=== PATIENT | male | born 1960 | race Caucasian/White ===

== ENCOUNTER 2025-01-12 10:35 | Observation (INO) ==
--- NOTE | 2025-01-12 11:21 | Emergency Department Note ---
Impression & Plan Vertigo, Vomiting, Nausea ED Provider Note NAME: YOVANY YANES AGE: 64 SEX: M : 1960 ARRIVES VIA: Ambulance INFORMANT: Patient ED PROVIDER(S): Tor Pfeiffer DO CHIEF COMPLAINT: dizzy HPI: Patient is a 64-year-old male with a past medical history of vertigo who presents to the ER for dizziness. Patient notes that this started this morning and was coming and going. It is now constant. Anytime he opens his eyes and moves it is worse. If he stays still it is much better. Denies any focal weakness or numbness in the arms or legs. No chest pain or shortness of breath. No dysuria, urgency, or frequency. No other exacerbating or remitting factors. ADDITIONAL HISTORY OBTAINED: Per HPI Chronic Medical/Social Conditions Affecting Care: Per HPI PAST MEDICAL HISTORY:See Below PAST SURGICAL HISTORY:See Below FAMILY HISTORY:See Below SOCIAL HISTORY:See Below HOME MEDICATIONS:See Below ALLERGIES:See Below VITALS:See Below PHYSICAL EXAMINATION: GENERAL: Sitting up in bed, alert, well appearing, well nourished, no distress, non-toxic EYE EXAM: normal conjunctiva. PERRL and EOM's grossly intact. OROPHARYNX: mucous membranes are moist NECK: supple, no nuchal rigidity, no adenopathy, non-tender LUNGS: Clear to auscultation. Normal chest wall mechanics HEART: no murmurs, S1 normal and S2 normal ABDOMEN: abdomen soft, non-tender, normo-active bowel sounds, no masses, no rebound or guarding. BACK: Back is symmetrical on inspection and there is no deformity, no midline tenderness, no CVA tenderness. SKIN: no rashes and no bruising UPPER EXTREMITIES: upper extremities are grossly normal. LOWER EXTREMITIES: No pitting edema. NEURO EXAM: Normal sensorium, cranial nerves II-XII intact, normal speech, no weakness of arms, no weakness of legs. No drift. Finger to nose intact. Gross sensation intact. MEDICAL DECISION MAKING: Patient is a 64-year-old male who presents ER for the above-stated complaint. IV was established and blood work was obtained. Labs show no significant leukocytosis or anemia. BMP with LFTs and bilirubin were fairly unremarkable. Troponin was negative. Lipase was normal. He has no chest pain. He is neurologically intact. CT angios of the head and neck showed no acute pathology. Chest x-ray was unremarkable. He was given several doses of Zofran, Reglan, Ativan and meclizine. He still felt fairly dizzy. Based on his symptoms I do favor that this likely consistent with a peripheral vertigo as it is worse with movement of the head but as he is still very symptomatic and having trouble walking did discuss case with the hospitalist for further evaluation management and treatment. Consults/Care Managements Discussions: Per [facility] Triage Nursing notes reviewed. Limited review of prior medical records performed Vital Signs: reviewed and remarkable for HTN Differential diagnosis: Differential diagnosis includes etiologies such as benign positional vertigo, dehydration, hypovolemia, anemia, tumor, infection, hypoglycemia, electrolyte abnormalities, cardiac sources, intracerebral event, toxicologic, neurological, as well as others were entertained. ER treatment provided: See below Diagnostics interpreted by me include EKG and cardiac monitoring as listed below: -Cardiac Monitoring: An order was placed for continuous cardiac monitoring. The monitor shows a rate of 50 with sinus rhythm. -ECG: Sinus bradycardia rate of 47 Normal axis No PVCs T wave inversion in V1 through V3 QTc 438 -Laboratory studies:Interpreted by me as stated above in MDM and shown below. Imaging studies: Xrays: As interpreted by me: Portable AP upright 1 view of the chest shows no focal infiltrate CTs show: CT angios of the head and neck were negative per radiology Procedures:none Critical Care: None Past Med/Surg History Problem List (Updated 01/12/25 @ 13:58 by Tor Pfeiffer DO) Nausea (Acute) Vomiting (Acute) Vertigo (Acute) Social History Smoking Status: Never smoker Feels Safe at Home: Yes Allergies Allergies Allergy/AdvReac Type Severity Reaction Status Date / Time No Known Allergies Allergy Unverified 01/12/25 11:31 Home Meds Home Medications Medication Instructions Recorded Confirmed allopurinol 100 mg tablet 100 mg PO DAILY 01/12/25 01/12/25 escitalopram oxalate 20 mg tablet 20 mg PO DAILY 01/12/25 01/12/25 gabapentin 300 mg capsule 300 mg PO TID 01/12/25 01/12/25 losartan 50 mg tablet 50 mg PO DAILY 01/12/25 01/12/25 omeprazole 40 mg capsule,delayed 40 mg PO DAILY 01/12/25 01/12/25 release pravastatin 40 mg tablet 40 mg PO DAILY 01/12/25 01/12/25 Results & Data (ED) Vital Signs Vital Signs - 24 hr 01/12/25 10:40 01/12/25 11:27 01/12/25 11:47 Temperature 36.8 C Temperature Source Oral Pulse Rate 48 L 54 L Pulse Rhythm Regular Pulse Strength Normal Respiratory Rate 18 Respiratory Effort / Characteristics Non-Labored Spontaneous Respiratory Depth Normal Respiratory Pattern Regular Blood Pressure 153/93 H Blood Pressure Mean 113 Pulse Oximetry 95 94 Oxygen Delivery Method Room Air Room Air Sepsis Recent Fever Within 48 Hours No Sepsis New/Unexplained Change in Mental Status No Sepsis Action Taken by Nursing No Action Required Laboratory Data 01/12/25 11:08 01/12/25 11:08 Lab Results 01/12/25 Range/Units 11:08 WBC 5.31 (4.8-10.8) K/ul RBC 4.99 (4.70-6.10) M/uL Hgb 15.0 (14.0-18.0) g/dl Hct 43.1 (42.0-52.0) % MCV 86.4 (80.0-100.0) fL MCH 30.1 (25.0-34.0) pg MCHC 34.8 (32.0-36.0) g/dL RDW Std Deviation 42.2 (36.4-46.3) fL RDW Coeff of Loki 13.4 (11.5-14.5) % Plt Count 166 (130-400) K/uL MPV 9.7 (9.4-12.4) fL Immature Gran % (Auto) 0.4 % Neut % (Auto) 78.5 % Lymph % (Auto) 13.4 % [place] % (Auto) 6.2 % Eos % (Auto) 0.9 % Baso % (Auto) 0.6 % Neut # (Auto) 4.17 (1.40-6.50) K/uL Lymph # (Auto) 0.71 L (1.20-3.40) K/uL [place] # (Auto) 0.33 (0.11-0.59) K/uL Eos # (Auto) 0.05 (0.00-0.50) K/uL Baso # (Auto) 0.03 (0.00-0.20) K/uL Immature Gran # (Auto) 0.02 (0.01-0.20) K/uL Sodium 138 (136-145) mmol/L Potassium 4.0 (3.5-5.1) mmol/L Chloride 105 (98-107) mmol/L Carbon Dioxide 22 (21-32) mmol/L Anion Gap 11 (3-11) BUN 12 (6-23) mg/dl Creatinine 0.95 (0.6-1.4) mg/dl Est Cr Clr Drug Dosing 84.8 ml/min eGFR 89.38 BUN/Creatinine Ratio 12.6 (10-20) Glucose 216 H (70-99(Fasting)) mg/dl Calcium 8.9 (8.6-10.3) mg/dl Total Bilirubin 1.2 H (0.2-1.0) mg/dl AST 21 (13-39) U/L ALT 18 (7-52) U/L Alkaline Phosphatase 62 (34-104) U/L Troponin I High Sens 2.9 (0-20) pg/ml Total Protein 6.8 (6.0-8.3) gm/dl Albumin 4.1 (3.4-5.0) gm/dl Globulin 2.7 (2.5-4.0) gm/dl Albumin/Globulin Ratio 1.5 (0.9-2) Lipase 22 (11-82) U/L Administered Medications Discontinued Medications Sodium Chloride (Nss) 1,000 mls @ 999 mls/hr IV .Q1H1M ALE Stop: 01/12/25 13:00 Last Admin: 01/12/25 13:06 Dose: 999 mls/hr Documented By: Infusion: 01/12/25 12:32 Dose: Infused Documented By: Admin: 01/12/25 11:31 Dose: 999 mls/hr Documented By: SHAVON Ioversol (Optiray 320 125ml) 118 ml IV ONCE ONE Stop: 01/12/25 12:09 Last Admin: 01/12/25 12:08 Dose: 118 ml Documented By: JANETH Lorazepam (Lorazepam 2 Mg/1 Ml Vial) 0.25 mg IV NOW STA Stop: 01/12/25 11:32 Last Admin: 01/12/25 11:36 Dose: 0.25 mg Documented By: SHAVON Lorazepam (Lorazepam 2 Mg/1 Ml Vial) 0.25 mg IV NOW STA Stop: 01/12/25 13:07 Last Admin: 01/12/25 13:51 Dose: 0.25 mg Documented By: SHAVON Meclizine HCl (Meclizine Hcl 25 Mg Tab) 25 mg PO NOW STA Stop: 01/12/25 11:19 Last Admin: 01/12/25 11:31 Dose: 25 mg Documented By: SHAVON Metoclopramide HCl (Metoclopramide Hcl Inj 5 Mg/Ml 2 Ml Vial) 10 mg IV NOW STA Stop: 01/12/25 12:55 Last Admin: 01/12/25 13:06 Dose: 10 mg Documented By: SHAVON Ondansetron HCl (Ondansetron Inj 2 Mg/Ml 2 Ml Vial) 4 mg IV NOW STA Stop: 01/12/25 10:54 Last Admin: 01/12/25 11:31 Dose: 4 mg Documented By: SHAVON Imaging Data Radiologist's Impression: Chest X-Ray 01/12/25 10:53 XR chest 1V portable CLINICAL HISTORY: Chest pain, nonspecific COMPARISON STUDY: None FINDINGS: There is mild cardiomegaly without pulmonary vascular congestion. Inspiration is shallow. There is mild stranding in the lung bases. No other consolidation or pleural effusion. No pneumothorax. IMPRESSION: Likely mild lung base atelectasis. ACT 112: Negative or not required by law. Electronically signed by: Cristhian Steele M.D. 01/12/2025 11:40 AM Head CTA 01/12/25 11:17 CT angio head wo/w CLINICAL HISTORY: dizzy COMPARISON STUDY: None FINDINGS: Noncontrast head CT: No intracranial hemorrhage seen. No mass effect, midline shift, or hydrocephalus. There are minimal chronic small vessel ischemic changes. Visualized paranasal sinuses and mastoid air cells are clear. No skull fracture seen. CTA: Right vertebral artery is dominant and the left vertebral artery is very diminutive beyond PICA, anatomic variant. No significant narrowing or occlusion seen at the distal vertebral arteries or the distal internal carotid arteries bilaterally. Basilar artery is widely patent. Anterior, middle, and posterior cerebral arteries are patent bilaterally. Cerebral venous sinuses opacify normally. No intracranial aneurysm seen. IMPRESSION: 1. No acute findings. 2. No significant arterial narrowing or occlusion seen at the brain. ACT 112: Negative or not required by law. Electronically signed by: Cristhian Steele M.D. 01/12/2025 12:24 PM Neck CTA 01/12/25 11:17 CT angio neck with con CLINICAL HISTORY: 64 years-old Male with dizzy. Acute dizziness COMPARISON STUDY: CTA head of same day TECHNIQUE: Following the IV administration of 118 of Optiray, CT angiogram of the neck was performed from the aortic arch to the skull base. Images are reviewed in the axial, sagittal, and coronal planes. 3-D MIPS images are created and assessed. IV contrast was administered without complication. All measurements were calculated based on NASCET criteria. A dose lowering technique was utilized adhering to the principles of ALARA. CT DOSE: 1213.58 mGy.cm FINDINGS: Three-vessel morphology of the thoracic aortic arch. Patent common and internal carotid arteries. Dominant right vertebral artery. Vertebral arteries are patent bilaterally. No aneurysm, dissection, high-grade stenosis or arterial occlusion. Lung apices are clear. Unremarkable soft tissues. No acute fracture. Degenerative changes of the cervical spine. IMPRESSION:Unremarkable CTA of the neck. ACT 112: Negative or not required by law. The above report was generated using voice recognition software. It may contain grammatical, syntax or spelling errors. Electronically signed by: Julian Whitehead M.D. 01/12/2025 12:46 PM Discharge Plan Visit Data Chief Complaint: Nausea Stated Complaint: NAUSEA, VOMITING, DIZZINESS ED Provider: Tor Pfeiffer Discharge Problem: Vertigo, Vomiting, Nausea Condition: Fair Forms Stand Alone Forms: [facility] Prescriptions Prescriptions: No Action losartan 50 mg tablet 50 mg PO DAILY pravastatin 40 mg tablet 40 mg PO DAILY allopurinol 100 mg tablet 100 mg PO DAILY omeprazole 40 mg capsule,delayed release(DR/EC) 40 mg PO DAILY gabapentin 300 mg capsule 300 mg PO TID escitalopram oxalate 20 mg tablet 20 mg PO DAILY Referrals Referrals: PCP,NO [Physician] - Discharge Problem: Vomiting Qualifiers: Vomiting type: unspecified Nausea presence: unspecified Qualified Code(s): R 11.10 - Vomiting, unspecified
[2025-01-12 11:23] LABS: Hematocrit (blood only) 43.1 % (42.0-52.0); Hemoglobin 15.0 g/dl (14.0-18.0); Immature Granulocytes # (auto) 0.02 K/uL (0.01-0.20); Immature Granulocytes % (auto) 0.4 %; Mean Corpuscular Hemoglobin 30.1 pg (25.0-34.0); Mean Corpuscular Volume 86.4 fL (80.0-100.0); Platelet Count 166 K/uL (130-400); RDW Standard Deviation 42.2 fL (36.4-46.3); Red Blood Count 4.99 M/uL (4.70-6.10); White Blood Count 5.31 K/ul (4.8-10.8)
[2025-01-12] MEDS: ONDANSETRON INJ 2 MG/ML 2 ML VIAL IV STA (11:31)
[2025-01-12] MEDS: MECLIZINE HCL 25 MG TAB PO STA (11:31)
[2025-01-12] MEDS: SODIUM CHLORIDE 0.9% 1,000 ML IV SCH ×2 (11:31→18:18)
--- NOTE | 2025-01-12 11:42 | XRay Report ---
XR chest 1V portable CLINICAL HISTORY: Chest pain, nonspecific COMPARISON STUDY: None FINDINGS: There is mild cardiomegaly without pulmonary vascular congestion. Inspiration is shallow. T here is mild stranding in the lung bases. No other consolidation or pleural effusion. No pneumothorax . IMPRESSION: Likely mild lung base atelectasis. ACT 112: Negative or not required by law. Electronically signed by: Cristhian Steele M.D. 01/12/2025 11:40 AM
[2025-01-12 11:45] LABS: Alanine Aminotransferase 18.0 U/L (7-52); Albumin Globulin Ratio 1.5 (0.9-2); Alkaline Phosphatase 62.0 U/L (34-104); Anion Gap 11.0 (3-11); Bilirubin,Total 1.2 mg/dl (0.2-1.0); Blood Urea Nitrogen 12.0 mg/dl (6-23); Calcium 8.9 mg/dl (8.6-10.3); Carbon Dioxide 22.0 mmol/L (21-32); Chloride 105.0 mmol/L (98-107); Creatinine Clr Calc Pharmacy 84.8 ml/min; Globulin 2.7 gm/dl (2.5-4.0); Glucose 216.0 mg/dl (70-99(Fasting)); Lipase 22.0 U/L (11-82); Potassium 4.0 mmol/L (3.5-5.1); Sodium 138.0 mmol/L (136-145); Total Protein 6.8 gm/dl (6.0-8.3)
[2025-01-12] MEDS: OPTIRAY 320 125ml IV ONE (12:08)
--- NOTE | 2025-01-12 12:26 | CT Scan Report ---
CT angio head wo/w CLINICAL HISTORY: dizzy COMPARISON STUDY: None FINDINGS: Noncontrast head CT: No intracranial hemorrhage seen. No mass effect, midline shift, or hydrocephalus . There are minimal chronic small vessel ischemic changes. Visualized paranasal sinuses and mastoid a ir cells are clear. No skull fracture seen. CTA: Right vertebral artery is dominant and the left vertebral artery is very diminutive beyond PICA, anatomic variant. No significant narrowing or occlusion seen at the distal vertebral arteries or the distal internal carotid arteries bilaterally. Basilar artery is widely patent. Anterior, middle, and posterior cerebral arteries are patent bilaterally. Cerebral venous sinuses opacify normally. No int racranial aneurysm seen. IMPRESSION: 1. No acute findings. 2. No significant arterial narrowing or occlusion seen at the brain. ACT 112: Negative or not required by law. Electronically signed by: Cristhian Steele M.D. 01/12/2025 12:24 PM
--- NOTE | 2025-01-12 12:47 | CT Scan Report ---
CT angio neck with con CLINICAL HISTORY: 64 years-old Male with dizzy. Acute dizziness COMPARISON STUDY: CTA head of same day TECHNIQUE: Following the IV administration of 118 of Optiray, CT angiogram of the neck was performed from the aortic arch to the skull base. Images are reviewed in the axial, sagittal, and coronal plane s. 3-D MIPS images are created and assessed. IV contrast was administered without complication. All m easurements were calculated based on NASCET criteria. A dose lowering technique was utilized adherin g to the principles of ALARA. CT DOSE: 1213.58 mGy.cm FINDINGS: Three-vessel morphology of the thoracic aortic arch. Patent common and internal carotid arteries. Dom inant right vertebral artery. Vertebral arteries are patent bilaterally. No aneurysm, dissection, hig h-grade stenosis or arterial occlusion. Lung apices are clear. Unremarkable soft tissues. No acute fr acture. Degenerative changes of the cervical spine. IMPRESSION:Unremarkable CTA of the neck. ACT 112: Negative or not required by law. The above report was generated using voice recognition software. It may contain grammatical, syntax o r spelling errors. Electronically signed by: Julian Whitehead M.D. 01/12/2025 12:46 PM
[2025-01-12] MEDS: METOCLOPRAMIDE HCL INJ 5 MG/ML 2 ML VIAL IV STA (13:06)
--- NOTE | 2025-01-12 14:17 | History & Physical Report ---
Date of Service January 12, 2025 Assessment & Plan (1) Vertigo: (2) Nausea: (3) Hypertension: (4) Hyperlipidemia: (5) GERD (gastroesophageal reflux disease): (6) Depression: (7) Gout: Plan 64 year old male with PMH significant for hypertension, hyperlipidemia, gout, depression, GERD, and history of vertigo who presented to the ED on 01/12/2025 with a severe episode of vertigo and is admitted for this. Vertigo Nausea Patient with history of vertigo (x12 episodes in 10 years) presenting with most severe episode to date Head and neck CTA without acute abnormality Obtain brain MRI to rule out cerebellar stroke PT for Monica maneuver Antiemetics scheduled and PRN Clear liquid diet and MIVF Hyperglycemia Fasting glucose 216 Obtain A1C BSG ACHS and SSI Consider childbirth educator if new diagnosis Sinus bradycardia Noted on admitting EKG Reviewed outpatient records with HRs ranging 60-80s TSH WNL Lyme screen negative Monitor on tele Hypertension Continue losartan Hyperlipidemia Continue statin GERD Continue omeprazole Depression Continue escitalopram Gout Continue allopurinol DVT Prophylaxis: SCDs Code Status: FULL CODE - As per discussion at bedside with the patient. PCP: Raymon Kearns ([facility]) Disposition: admit to med tele Patient seen in collaboration with Dr Blount. Please see addendum. I spent a total of 60 minutes coordinating, documenting and providing care for this patient excluding time spent in the performance of separately billed services or time spent by another provider/QHP. Admission and Anticipated Discharge Date Admission Date: 01/12/2025 History of Present Illness Chief Complaint: vertigo Primary Care Provider: Raymon Kearns PA-C 64 year old male with PMH significant for hypertension, hyperlipidemia, gout, depression, GERD, and history of vertigo who presented to the ED on 01/12/2025 with a severe episode of vertigo. Patient reports he woke up this morning around 0800 and felt like the entire room was spinning. He had a hard time walking to the bathroom. He laid down for 30 minutes and was feeling better but then notes the dizziness worsened again. He was nauseous and vomiting. His family notes he was pale and very diaphoretic. His daughter is a registered nurse and checked his blood pressure (160/90) and gave him x4 baby aspirins. Patient has had about 12 episodes of vertigo over the last 10 years and this is by far the worst yet. He has previously worked with PT who advised neck stretches and have done successful Monica maneuvers. Currently, he doesn't feel dizzy if he is laying still with his eyes closed. If his eyes are open, he is still feeling like the room is spinning. Still very nauseated despite antiemetics. Notes chronic tingling of bilateral fingers. Denies fevers, chills, chest pain, SOB, abdominal pain, N/V/D. Allergies Allergy/AdvReac Type Severity Reaction Status Date / Time No Known Allergies Allergy Unverified 01/12/25 11:31 Home Medications Medication Instructions Recorded Confirmed Type allopurinol 100 mg tablet 100 mg PO DAILY 01/12/25 01/12/25 History escitalopram oxalate 20 mg tablet 20 mg PO DAILY 01/12/25 01/12/25 History gabapentin 300 mg capsule 300 mg PO TID 01/12/25 01/12/25 History losartan 50 mg tablet 50 mg PO DAILY 01/12/25 01/12/25 History omeprazole 40 mg capsule,delayed 40 mg PO DAILY 01/12/25 01/12/25 History release pravastatin 40 mg tablet 40 mg PO DAILY 01/12/25 01/12/25 History Past Med/Surg History Problem List (Updated 01/12/25 @ 14:15 by SEVERINO Hernandez) Nausea (Acute) Vomiting (Acute) Vertigo (Acute) Medical History (Updated 01/12/25 @ 14:15 by SEVERINO Hernandez) Hyperlipidemia GERD (gastroesophageal reflux disease) Hypertension Depression Gout Family History (Updated 01/12/25 @ 14:15 by SEVERINO Hernandez) Other Diabetes Social History (Updated 01/12/25 @ 14:16 by SEVERINO Hernandez) Smoking Status: Former smoker Tobacco Type: Smokeless Tobacco (Dip or Chew) Do You Dip or Chew Tobacco: No; Hx Alcohol Use: Yes Alcohol type: beer Alcohol Intake Frequency: 4 or More x per/Week Alcohol Intake Frequency Comment: 6-8 beers per day Hx Substance Use: No Current Living Situation: Family Feels Safe at Home: Yes Assistive Devices: None Review of Systems Review of Systems: All systems reviewed & are unremarkable except as noted in HPI & below Physical Exam Physical Exam: General/Psych: WD/WN, laying in bed, NAD, conversing easily Head: normocephalic, atraumatic Eyes: normal inspection, PERRL, conjunctivae pink, anicteric sclerae, slight nystagmus noted ENT: external ear and nose normal, oropharynx normal Neck: normal visual inspection, trachea midline Respiratory: normal respiratory effort, lungs clear to auscultation, no wheeze/rales/rhonchi, no accessory muscle use Cardiovascular: bradycardic rate and rhythm, no murmur/rub/gallop, no JVD Extremities: no cyanosis or clubbing, normal peripheral pulses, no BLE edema Abdomen/GI: normal bowel sounds, soft, nontender Neurologic/MSK: A+Ox3, motor strength 5/5, moves all extremities Skin: no rashes, normal color, warm and dry Results & Data Results & Data Vital Signs (Past 12 Hours) Vital Signs Temp Pulse Resp BP Pulse Ox O2 Del Method 01/12/25 11:47 54 L 01/12/25 11:27 94 Room Air 01/12/25 10:40 36.8 C 48 L 18 153/93 H 95 Room Air Laboratory Results Short CBC 01/12/25 Range/Units 11:08 WBC 5.31 (4.8-10.8) K/ul Hgb 15.0 (14.0-18.0) g/dl Hct 43.1 (42.0-52.0) % Plt Count 166 (130-400) K/uL BMP 01/12/25 11:08 Sodium 138 Potassium 4.0 Chloride 105 Carbon Dioxide 22 BUN 12 Creatinine 0.95 Glucose 216 H Calcium 8.9 Liver Function 01/12/25 Range/Units 11:08 Total Bilirubin 1.2 H (0.2-1.0) mg/dl AST 21 (13-39) U/L ALT 18 (7-52) U/L Alkaline Phosphatase 62 (34-104) U/L Albumin 4.1 (3.4-5.0) gm/dl I have independently reviewed and interpreted patient's admitting labs including CBC, CMP, troponin, lipase, TSH, lyme screen Diagnostic Findings Chest X-Ray 01/12/25 10:53 XR chest 1V portable CLINICAL HISTORY: Chest pain, nonspecific COMPARISON STUDY: None FINDINGS: There is mild cardiomegaly without pulmonary vascular congestion. Inspiration is shallow. There is mild stranding in the lung bases. No other consolidation or pleural effusion. No pneumothorax. IMPRESSION: Likely mild lung base atelectasis. ACT 112: Negative or not required by law. Electronically signed by: Cristhian Steele M.D. 01/12/2025 11:40 AM Head CTA 01/12/25 11:17 CT angio head wo/w CLINICAL HISTORY: dizzy COMPARISON STUDY: None FINDINGS: Noncontrast head CT: No intracranial hemorrhage seen. No mass effect, midline shift, or hydrocephalus. There are minimal chronic small vessel ischemic changes. Visualized paranasal sinuses and mastoid air cells are clear. No skull fracture seen. CTA: Right vertebral artery is dominant and the left vertebral artery is very diminutive beyond PICA, anatomic variant. No significant narrowing or occlusion seen at the distal vertebral arteries or the distal internal carotid arteries bilaterally. Basilar artery is widely patent. Anterior, middle, and posterior cerebral arteries are patent bilaterally. Cerebral venous sinuses opacify normally. No intracranial aneurysm seen. IMPRESSION: 1. No acute findings. 2. No significant arterial narrowing or occlusion seen at the brain. ACT 112: Negative or not required by law. Electronically signed by: Cristhian Steele M.D. 01/12/2025 12:24 PM Neck CTA 01/12/25 11:17 CT angio neck with con CLINICAL HISTORY: 64 years-old Male with dizzy. Acute dizziness COMPARISON STUDY: CTA head of same day TECHNIQUE: Following the IV administration of 118 of Optiray, CT angiogram of the neck was performed from the aortic arch to the skull base. Images are reviewed in the axial, sagittal, and coronal planes. 3-D MIPS images are created and assessed. IV contrast was administered without complication. All gina urements were calculated based on NASCET criteria. A dose lowering technique was utilized adhering to the principles of ALARA. CT DOSE: 1213.58 mGy.cm FINDINGS: Three-vessel morphology of the thoracic aortic arch. Patent common and internal carotid arteries. Dominant right vertebral artery. Vertebral arteries are patent bilaterally. No aneurysm, dissection, high-grade stenosis or arterial occlusion. Lung apices are clear. Unremarkable soft tissues. No acute fracture. Degenerative changes of the cervical spine. IMPRESSION:Unremarkable CTA of the neck. ACT 112: Negative or not required by law. The above report was generated using voice recognition software. It may contain grammatical, syntax or spelling errors. Electronically signed by: Julian Whitehead M.D. 01/12/2025 12:46 PM ECG Additional Comments: I have independently reviewed and interpreted patient's admitting EKG which reve aled: sinus bradycardia at a rate of 47 bpm Code Status & VTE Plan Code Status Full Code VTE Prophylaxis Plan VTE Prophylaxis will be ordered: Yes
--- NOTE | 2025-01-12 14:38 | Communication Note ---
Date of Service: January 12, 2025 Attending Addendum: Case reviewed with the advanced practitioner. I have personally performed a history and physical examination on the patient. I have reviewed the advanced practitioner's documentation on the date of service referenced in note, and I agree with, and take responsibility for the plan of care. please refer to her notes for full details patient seen and examined, records reviewed by myself as well on exam, patient seen resting in bed, family at bedside visiting states only feels somewhat better since arrival to the ER dizziness, nausea not as severe but still significant: feels room is spinning no active headache, chest pain, shortness of breath, palpitations no other symptoms VS noted and reviewed oriented x3, not in distress, speaks in sentences with no effort nor accessory muscle use bradycardic 57, regular rhythm, no murmurs clear breath sounds bilaterally non distended, soft, nontender no bipedal edema, erythema, warmth no neuro deficits all labs, imaging noted and reviewed ASSESSMENT AND PLAN> SEVERE DIZZINESS, LIKELY RECURRENCE OF VERTIGO R/O CEREBELLAR STROKE had previous vertigo attacks, but this is the worst as per patient and family CT head and neck: no acute stroke, no stenosis Brain MRI ordered to r/o CVA PT/OT eval for Monica Maneuver PRN Meclizine, Ativan, Scheduled Reglan IV fluids SINUS BRADYCARDIA baseline HR 60s as per patient HR 47 on initial EKG HR 57 per bedside monitor vasovagal from dizziness/nausea? check TSH, Lyme screen, 2nd troponin monitor in Telemetry HYPERGLYCEMIA no history of DM check a1c Insulin Sliding Scale- conservative parameters for today, trend BSGs DM educator if DM confirmed other diagnoses and plan of care as per advanced practitioner's notes I spent a total of 40 minutes coordinating, documenting, and providing care for this patient, excluding time spent in the performance of separately billed services or time spent by another provider/QHP. Adán Blount MD
[2025-01-12 14:50] LABS: Thyroid Stimulating Hormone 2.173 uIu/ml (0.300-4.500)
[2025-01-12] MEDS ORDERED: DEXTROSE 50% 50 ML SYRINGE IV PRN (16:30)
[2025-01-12] MEDS ORDERED: GLUCOSE 40% GEL 15 GM TUBE PO PRN (16:30)
[2025-01-12] MEDS ORDERED: GLUCOSE 10 TAB/TUBE PO PRN (16:30)
[2025-01-12] MEDS ORDERED: GLUCAGON FOR INJ 1 MG VIAL SQ PRN (16:30)
[2025-01-12] MEDS ORDERED: CARBOHYDRATES FOR HYPOGLYCEMIA PO PRN (16:30)
--- NOTE | 2025-01-12 18:15 | Magnetic Resonance Report ---
MRI of the brain performed without IV contrast History: Comparison: None Technique: Sagittal T1-weighted and axial T2-weighted, T2/FLAIR and diffusion-weighted with ADC map images of the brain were obtained without IV contrast. Findings: No evidence for intracranial mass lesion, mass-effect, midline shift, or abnormal extra-axial fluid collection. The ventricles and sulci are within normal limits for age. No abnormally reduced diffusion or evidence for acute infarct. Normal intravascular flow voids. Impression: Normal brain MRI Electronically signed by Jesse Saucedo 01-12-2025 6:15 PM
[2025-01-12] MEDS: ONDANSETRON INJ 2 MG/ML 2 ML VIAL IV PRN (18:18)
[2025-01-12] MEDS: INSULIN ASPART PER UNIT CHARGE SC SCH (18:18)
[2025-01-12] MEDS: METOCLOPRAMIDE HCL INJ 5 MG/ML 2 ML VIAL IV SCH (20:03)
[2025-01-12] MEDS: GABAPENTIN 300 MG CAP PO SCH (20:06)
[2025-01-12] MEDS: MECLIZINE HCL 25 MG TAB PO PRN (20:30)
[2025-01-13 07:16] LABS: Hematocrit (blood only) 36.4 % (42.0-52.0); Hemoglobin 12.7 g/dl (14.0-18.0); Mean Corpuscular Hemoglobin 30.7 pg (25.0-34.0); Mean Corpuscular Volume 87.9 fL (80.0-100.0); Platelet Count 175 K/uL (130-400); RDW Standard Deviation 43.3 fL (36.4-46.3); Red Blood Count 4.14 M/uL (4.70-6.10); White Blood Count 5.78 K/ul (4.8-10.8)
[2025-01-13 07:36] LABS: Anion Gap 7.0 (3-11); Blood Urea Nitrogen 8.0 mg/dl (6-23); Calcium 8.1 mg/dl (8.6-10.3); Carbon Dioxide 24.0 mmol/L (21-32); Chloride 108.0 mmol/L (98-107); Creatinine Clr Calc Pharmacy 97.1 ml/min; Glucose 113.0 mg/dl (70-99(Fasting)); Potassium 3.3 mmol/L (3.5-5.1); Sodium 139.0 mmol/L (136-145)
[2025-01-13 08:50] LABS: Hemoglobin A1C 5.5 % (4.5-5.6)
[2025-01-13] MEDS: ESCITALOPRAM OXALATE 20 MG TAB PO SCH (09:41)
[2025-01-13] MEDS: PRAVASTATIN SOD 40 MG TAB PO SCH (09:41)
[2025-01-13] MEDS: LOSARTAN POTASSIUM 50 MG TAB PO SCH (09:41)
[2025-01-13] MEDS: POTASSIUM CHLORIDE CRTAB 20 MEQ TABCR PO STA (09:44)
--- NOTE | 2025-01-13 13:55 | Hospitalist Progress Note ---
Date of Service January 13, 2025 Assessment & Plan (1) Vertigo: (2) Nausea: (3) Hypertension: (4) Hyperlipidemia: (5) GERD (gastroesophageal reflux disease): (6) Depression: (7) Gout: Plan 64 year old male with PMH significant for hypertension, hyperlipidemia, gout, depression, GERD, and history of recurrent vertigo admitted with a severe episode of vertigo. Vertigo with Nausea and Emesis Patient with history of vertigo (x12 episodes in 10 years) presenting with most severe episode to date. He does not seem to have a hearing loss or tinnitus so I do not think this represents Mnire's disease. Head and neck CTA without acute abnormality MRI reviewed and no evidence of stroke PT for Monica maneuver Antiemetics scheduled and PRN Clear liquid diet and MIVF Hyperglycemia Fasting glucose 216 A1C---> 5.5 Discontinue BSG ACHS and SSI Sinus bradycardia Noted on admitting EKG Reviewed outpatient records with HRs ranging 60-80s TSH WNL Lyme screen negative Monitor on tele Hypertension Continue losartan Hyperlipidemia Continue statin GERD Continue omeprazole Depression Continue escitalopram Gout Continue allopurinol DVT Prophylaxis: SCDs Code Status: FULL CODE - As per discussion at bedside with the patient. PCP: Raymon Kearns ([facility]) Continue on Viralytics I spent a total of 51 minutes coordinating, documenting and providing care for this patient Admission and Anticipated Discharge Date Admission Date: January 12, 2025 Subjective Chart an data reviewed. VSS. Still with vertigo and unsteady. No emesis since admit. Pt seen twice today on rounds. His is present. He did fall prior to discharge. No head trauma. No evidence of stroke or thrombosis on w/u. Review of Systems Review of Systems: Constitutional- no fever; no weight loss Eyes- no acute visual changes ENT- no sinus drainage; no pharyngitis Pulmonary- no cough, no wheezing, no shortness of breath Cardiac- no chest pain, no palpitations, no orthopnea, no dependent edema GI- Had nausea and vomiting, no diarrhea, no melena, no hematochezia - no dysuria, no hematuria Musculoskeletal- no arthralgias, no myalgias Derm- no rashes, no new skin lesions, no changing skin lesions Hematologic- no unusual bruising, no unusual bleeding Lymphatics- no adenopathy Endocrine- no polyuria or polydipsia; no heat or cold intolerance Neuro- no headaches, no focal neurologic symptoms, severe vertigo. Psych- no anxiety, no depression Physical Exam Physical Exam: General- adult male seen at bedside Head- atraumatic Eyes- PERRL, EOMI, anicteric, has no nystagmus that fatigues to the left. ENT- oropharynx clear Neck- supple, no JVD, no adenopathy, no thyromegaly; carotids +2/2, no bruits appreciated Lungs- clear to auscultation and percussion Heart- regular rhythm; no murmur, no gallop, no rub appreciated Abdomen- normal bowel sounds, soft, nontender, no masses or hepatosplenomegaly Extremities- no pretibial edema, no calf tenderness; peripheral pulses intact Neuro- alert, oriented x 3; PERRL, EOMI; no facial palsy; no dysarthria; motor 5/5 bilaterally; no cogwheel rigidity; patellar DTRs +2/2; toes downgoing bilaterally; finger to nose intact bilaterally Skin- warm & dry Results & Data Results & Data Vital Signs (Past 12 Hours) Vital Signs Temp Pulse Pulse Resp BP BP Pulse Ox 01/13/25 11:40 36.6 C 56 L 18 153/95 H 98 01/13/25 07:43 36.6 C 54 L 18 131/76 97 01/13/25 06:59 57 L 01/13/25 03:42 36.7 C 58 L 16 122/72 96 O2 Del Method 01/13/25 11:40 Room Air 01/13/25 07:43 Room Air 01/13/25 06:59 01/13/25 03:42 Room Air Laboratory Results Short CBC 01/13/25 Range/Units 06:31 WBC 5.78 (4.8-10.8) K/ul Hgb 12.7 L (14.0-18.0) g/dl Hct 36.4 L (42.0-52.0) % Plt Count 175 (130-400) K/uL BMP 01/13/25 06:31 Sodium 139 Potassium 3.3 L Chloride 108 H Carbon Dioxide 24 BUN 8 Creatinine 0.84 Glucose 113 H Calcium 8.1 L Diagnostic Findings Laboratory Results WBC 5.78 K/ul (4.8-10.8) 01/13/25 06:31 RBC 4.14 M/uL (4.70-6.10) L 01/13/25 06:31 Hgb 12.7 g/dl (14.0-18.0) L 01/13/25 06:31 Hct 36.4 % (42.0-52.0) L 01/13/25 06:31 MCV 87.9 fL (80.0-100.0) 01/13/25 06: MCH 30.7 pg (25.0-34.0) 01/13/25 06: MCHC 34.9 g/dL (32.0-36.0) 01/13/25 06: RDW Std Deviation 43.3 fL (36.4-46.3) 01/13/25 06: RDW Coeff of Loki 13.3 % (11.5-14.5) 01/13/25 06: Plt Count 175 K/uL (130-400) 01/13/25 06: MPV 10.3 fL (9.4-12.4) 01/13/25 06:31 Immature Gran % (Auto) 0.4 % 01/12/25 11:08 Neut % (Auto) 78.5 % 01/12/25 11:08 Lymph % (Auto) 13.4 % 01/12/25 11:08 [place] % (Auto) 6.2 % 01/12/25 11:08 Eos % (Auto) 0.9 % 01/12/25 11:08 Baso % (Auto) 0.6 % 01/12/25 11:08 Neut # (Auto) 4.17 K/uL (1.40-6.50) 01/12/25 11:08 Lymph # (Auto) 0.71 K/uL (1.20-3.40) L 01/12/25 11:08 [place] # (Auto) 0.33 K/uL (0.11-0.59) 01/12/25 11:08 Eos # (Auto) 0.05 K/uL (0.00-0.50) 01/12/25 11:08 Baso # (Auto) 0.03 K/uL (0.00-0.20) 01/12/25 11:08 Immature Gran # (Auto) 0.02 K/uL (0.01-0.20) 01/12/25 11:08 Sodium 139 mmol/L (136-145) 01/13/25 06:31 Potassium 3.3 mmol/L (3.5-5.1) L 01/13/25 06:31 Chloride 108 mmol/L (98-107) H 01/13/25 06:31 Carbon Dioxide 24 mmol/L (21-32) 01/13/25 06:31 Anion Gap 7 (3-11) 01/13/25 06:31 BUN 8 mg/dl (6-23) 01/13/25 06:31 Creatinine 0.84 mg/dl (0.6-1.4) 01/13/25 06:31 Est Cr Clr Drug Dosing 97.1 ml/min 01/13/25 06:31 eGFR 97.38 01/13/25 06:31 BUN/Creatinine Ratio 9.5 (10-20) L 01/13/25 06:31 Glucose 113 mg/dl (70-99(Fasting)) H 01/13/25 06:31 POC Glucose 80 mg/dl (70-99) 01/13/25 11:48 Estimat Average Glucose 111 mg/dl 01/13/25 06:31 Hemoglobin A1c 5.5 % (4.5-5.6) 01/13/25 06:31 Calcium 8.1 mg/dl (8.6-10.3) L 01/13/25 06:31 Total Bilirubin 1.2 mg/dl (0.2-1.0) H 01/12/25 11:08 AST 21 U/L (13-39) 01/12/25 11:08 ALT 18 U/L (7-52) 01/12/25 11:08 Alkaline Phosphatase 62 U/L (34-104) 01/12/25 11:08 Troponin I High Sens 7.5 pg/ml (0-20) D 01/12/25 15:02 Total Protein 6.8 gm/dl (6.0-8.3) 01/12/25 11:08 Albumin 4.1 gm/dl (3.4-5.0) 01/12/25 11:08 Globulin 2.7 gm/dl (2.5-4.0) 01/12/25 11:08 Albumin/Globulin Ratio 1.5 (0.9-2) 01/12/25 11:08 Lipase 22 U/L (11-82) 01/12/25 11:08 TSH 2.173 uIu/ml (0.300-4.500) 01/12/25 11:08 Lyme Disease Screen Negative (Negative) 01/12/25 11:08 Impressions Chest X-Ray 01/12/25 10:53 XR chest 1V portable CLINICAL HISTORY: Chest pain, nonspecific COMPARISON STUDY: None FINDINGS: There is mild cardiomegaly without pulmonary vascular congestion. Inspiration is shallow. There is mild stranding in the lung bases. No other consolidation or pleural effusion. No pneumothorax. IMPRESSION: Likely mild lung base atelectasis. ACT 112: Negative or not required by law. Electronically signed by: Cristhian Steele M.D. 01/12/2025 11:40 AM Head CTA 01/12/25 11:17 CT angio head wo/w CLINICAL HISTORY: dizzy COMPARISON STUDY: None FINDINGS: Noncontrast head CT: No intracranial hemorrhage seen. No mass effect, midline shift, or hydrocephalus. There are minimal chronic small vessel ischemic changes. Visualized paranasal sinuses and mastoid air cells are clear. No skull fracture seen. CTA: Right vertebral artery is dominant and the left vertebral artery is very diminutive beyond PICA, anatomic variant. No significant narrowing or occlusion seen at the distal vertebral arteries or the distal internal carotid arteries bilaterally. Basilar artery is widely patent. Anterior, middle, and posterior cerebral arteries are patent bilaterally. Cerebral venous sinuses opacify normally. No intracranial aneurysm seen. IMPRESSION: 1. No acute findings. 2. No significant arterial narrowing or occlusion seen at the brain. ACT 112: Negative or not required by law. Electronically signed by: Cristhian Steele M.D. 01/12/2025 12:24 PM Neck CTA 01/12/25 11:17 CT angio neck with con CLINICAL HISTORY: 64 years-old Male with dizzy. Acute dizziness COMPARISON STUDY: CTA head of same day TECHNIQUE: Following the IV administration of 118 of Optiray, CT angiogram of the neck was performed from the aortic arch to the skull base. Images are reviewed in the axial, sagittal, and coronal planes. 3-D MIPS images are created and assessed. IV contrast was administered without complication. All measure ments were calculated based on NASCET criteria. A dose lowering technique was utilized adhering to the principles of ALARA. CT DOSE: 1213.58 mGy.cm FINDINGS: Three-vessel morphology of the thoracic aortic arch. Patent common and internal carotid arteries. Dominant right vertebral artery. Vertebral arteries are patent bilaterally. No aneurysm, dissection, high-grade stenosis or arterial occlusion. Lung apices are clear. Unremarkable soft tissues. No acute fracture. Degenerative changes of the cervical spine. IMPRESSION:Unremarkable CTA of the neck. ACT 112: Negative or not required by law. The above report was generated using voice recognition software. It may contain grammatical, syntax or spelling errors. Electronically signed by: Julian Whitehead M.D. 01/12/2025 12:46 PM Brain MRI 01/12/25 14:06 MRI of the brain performed without IV contrast History: Comparison: None Technique: Sagittal T1-weighted and axial T2-weighted, T2/FLAIR and diffusion-weighted with ADC map images of the brain were obtained without IV contrast. Findings: No evidence for intracranial mass lesion, mass-effect, midline shift, or abnormal extra-axial fluid collection. The ventricles and sulci are within normal limits for age. No abnormally reduced diffusion or evidence for acute infarct. Normal intravascular flow voids. Impression: Normal brain MRI Electronically signed by Jesse Saucedo 01-12-2025 6:15 PM
--- NOTE | 2025-01-14 05:36 | Electrocardiogram Report ---
Test Reason : Blood Pressure : */* mmHG Vent. Rate : 47 BPM Atrial Rate : 47 BPM P-R Int : 154 ms QRS Dur : 88 ms QT Int : 496 ms P-R-T Axes : 3 14 27 degrees QTcB Int : 438 ms Sinus bradycardia Nonspecific T wave abnormality Abnormal ECG No previous ECGs available Confirmed by Jai Sanchez ([id number]) on 01/14/2025 5:35:40 AM Referred By: REFERRED SELF Confirmed By: Jai Sanchez
[2025-01-14 06:27] LABS: Hematocrit (blood only) 39.4 % (42.0-52.0); Hemoglobin 13.6 g/dl (14.0-18.0); Mean Corpuscular Hemoglobin 29.8 pg (25.0-34.0); Mean Corpuscular Volume 86.2 fL (80.0-100.0); Platelet Count 158 K/uL (130-400); RDW Standard Deviation 42.3 fL (36.4-46.3); Red Blood Count 4.57 M/uL (4.70-6.10); White Blood Count 4.42 K/ul (4.8-10.8)
[2025-01-14 06:52] LABS: Anion Gap 6.0 (3-11); Blood Urea Nitrogen 10.0 mg/dl (6-23); Calcium 8.3 mg/dl (8.6-10.3); Carbon Dioxide 26.0 mmol/L (21-32); Chloride 108.0 mmol/L (98-107); Creatinine Clr Calc Pharmacy 78.7 ml/min; Glucose 99.0 mg/dl (70-99(Fasting)); Magnesium 2.0 mg/dl (1.7-2.4); Potassium 3.7 mmol/L (3.5-5.1); Sodium 140.0 mmol/L (136-145)
[2025-01-14 07:39] VITALS: O2SAT 94
[2025-01-14 11:25] VITALS: PULSE 57; RESP 20; TEMP 97.5
[2025-01-14 11:38] VITALS: BP 144/79
--- NOTE | 2025-01-14 13:42 | Discharge Summary ---
Discharge Summary Date of Service January 14, 2025 Principal Dx & Hospital Course #1 = Principal Diagnosis (1) Vertigo: (2) Nausea: (3) Hypertension: (4) Hyperlipidemia: (5) GERD (gastroesophageal reflux disease): (6) Depression: (7) Gout: Notes For Next Care Provider Medication Changes From Visit ; Admission HPI Per Admitting Provider 64 year old male with PMH significant for hypertension, hyperlipidemia, gout, depression, GERD, and history of vertigo who presented to the ED on 01/12/2025 with a severe episode of vertigo. Patient reports he woke up this morning around 0800 and felt like the entire room was spinning. He had a hard time walking to the bathroom. He laid down for 30 minutes and was feeling better but then notes the dizziness worsened again. He was nauseous and vomiting. His family notes he was pale and very diaphoretic. His daughter is a registered nurse and checked his blood pressure (160/90) and gave him x4 baby aspirins. Patient has had about 12 episodes of vertigo over the last 10 years and this is by far the worst yet. He has previously worked with PT who advised neck stretches and have done successful Monica maneuvers. Currently, he doesn't feel dizzy if he is laying still with his eyes closed. If his eyes are open, he is still feeling like the room is spinning. Still very nauseated despite antiemetics. Notes chronic tingling of bilateral fingers. Denies fevers, chills, chest pain, SOB, abdominal pain, N/V/D. Discharge Exam General- adult male seen at bedside Head- atraumatic Eyes- PERRL, EOMI, anicteric, has no nystagmus that fatigues to the left. ENT- oropharynx clear Neck- supple, no JVD, no adenopathy, no thyromegaly; carotids +2/2, no bruits appreciated Lungs- clear to auscultation and percussion Heart- regular rhythm; no murmur, no gallop, no rub appreciated Abdomen- normal bowel sounds, soft, nontender, no masses or hepatosplenomegaly Extremities- no pretibial edema, no calf tenderness; peripheral pulses intact Neuro- alert, oriented x 3; PERRL, EOMI; no facial palsy; no dysarthria; motor 5/5 bilaterally; no cogwheel rigidity; patellar DTRs +2/2; toes downgoing bilaterally; finger to nose intact bilaterally Skin- warm & dry Updated Medication List Medication Instructions Recorded Confirmed Type allopurinol 100 mg tablet 100 mg PO DAILY 01/12/25 01/12/25 History escitalopram oxalate 20 mg tablet 20 mg PO DAILY 01/12/25 01/12/25 History gabapentin 300 mg capsule 300 mg PO TID 01/12/25 01/12/25 History losartan 50 mg tablet 50 mg PO DAILY 01/12/25 01/12/25 History omeprazole 40 mg capsule,delayed 40 mg PO DAILY 01/12/25 01/12/25 History release pravastatin 40 mg tablet 40 mg PO DAILY 01/12/25 01/12/25 History meclizine 25 mg tablet 25 mg PO Q6 #30 tabs 01/14/25 Rx Additional Medication Comments Continue Antivert as needed. Hospital Stay Data Consultations 01/12/25 13:05 ED Decision to Admit Stat Diagnostic Imagining Performed 01/12/25 11:17 CT angio head wo/w Stat CT angio neck with con Stat 01/12/25 14:06 MRI Brain [MR brain wo con] Urgent Pending Results Patient Have Any Pending Studies at Discharge: No Discharge Instructions Given to Patient (Per Discharging Provider) Make appt with Neurology to discuss headaches and vertigo Take Antivert up to 4 times a day as needed for vertigo Total Time Total Time Spent Total Time Spent (In Minutes): 37 minutes spent in discharge planning Course Course [facility]; Mr. Espinoza was admitted to a medical surgical unit with Tele. He is a 64 year old male with PMH significant for hypertension, hyperlipidemia, gout, depression, GERD, and history of recurrent vertigo admitted with a severe episode of vertigo. DVT Prophylaxis: SCDs. Code Status: FULL CODE - As per discussion at bedside with the patient. Patient with history of vertigo (x12 episodes in 10 years) presenting with most severe episode to date. He does not seem to have a hearing loss or tinnitus so I do not think this represents Mnire's disease. Head and neck CTA without acute abnormality. MRI reviewed and no evidence of stroke. PT consulted for Monica maneuver. Antiemetics scheduled and PRN. Clear liquid diet and MIVF. Diet advanced. Fasting glucose was 216 but A1C---> 5.5. Sinus bradycardia noted on admitting EKG. Reviewed outpatient records with HRs ranging 60-80s. Through hospital course pulse and HR mainly in high 50s-60s. No orthostasis. TSH WNL. Lyme screen negative. Monitored on tele. Continue losarta n. Continue statin. Continue escitalopram. Patient did well with PT. His activity was advanced. He was ambulating without severe vertigo. He was given Antivert as needed. He felt much better on the day of discharge. His vital signs were stable. He denied nausea, vomiting, diarrhea, visual disturbance, headache, chest pain or shortness of breath. Discharge instructions were discussed with the patient in detail. He will follow-up with his PCP and neurology. Administered Medications Allopurinol (Allopurinol 100 Mg Tab) 100 mg PO DAILY ALE Stop: 02/12/25 08:59 Last Admin: 01/14/25 07:41 Dose: 100 mg Documented By: Admin: 01/13/25 09:42 Dose: 100 mg Documented By: CHERRI Escitalopram Oxalate (Escitalopram Oxalate 20 Mg Tab) 20 mg PO DAILY ALE Stop: 02/12/25 08:59 Last Admin: 01/14/25 07:42 Dose: 20 mg Documented By: Admin: 01/13/25 09:41 Dose: 20 mg Documented By: CHERRI Gabapentin (Gabapentin 300 Mg Cap) 300 mg PO TID ALE Stop: 02/11/25 20:59 Last Admin: 01/14/25 07:41 Dose: 300 mg Documented By: Admin: 01/13/25 19:49 Dose: 300 mg Documented By: Admin: 01/13/25 14:38 Dose: 300 mg Documented By: Admin: 01/13/25 09:41 Dose: 300 mg Documented By: [facility] Admin: 01/12/25 20:06 Dose: 300 mg Documented By: [id number] Losartan Potassium (Losartan Potassium 50 Mg Tab) 50 mg PO DAILY ALE Stop: 02/12/25 08:59 Last Admin: 01/14/25 07:41 Dose: 50 mg Documented By: Admin: 01/13/25 09:41 Dose: 50 mg Documented By: CHERRI Meclizine HCl (Meclizine Hcl 25 Mg Tab) 25 mg PO Q6 PRN PRN Reason: Vertigo Stop: 02/11/25 16:29 Last Admin: 01/14/25 01:56 Dose: 25 mg Documented By: Admin: 01/13/25 19:48 Dose: 25 mg Documented By: Admin: 01/13/25 12:16 Dose: 25 mg Documented By: Admin: 01/13/25 06:02 Dose: 25 mg Documented By: [id number] Admin: 01/12/25 20:30 Dose: 25 mg Documented By: [id number] Metoclopramide HCl (Metoclopramide Hcl Inj 5 Mg/Ml 2 Ml Vial) 10 mg IV Q6H ALE Stop: 02/11/25 18:59 Last Admin: 01/14/25 07:15 Dose: 10 mg Documented By: Admin: 01/14/25 01:56 Dose: 10 mg Documented By: Admin: 01/13/25 19:48 Dose: 10 mg Documented By: Admin: 01/13/25 14:38 Dose: 10 mg Documented By: Admin: 01/13/25 06:02 Dose: 10 mg Documented By: [id number] Admin: 01/13/25 01:19 Dose: 10 mg Documented By: suri Admin: 01/12/25 20:03 Dose: 10 mg Documented By: [id number] Pantoprazole Sodium (Pantoprazole 40 Mg Tab) 40 mg PO DAILY ALE Stop: 02/12/25 08:59 Last Admin: 01/14/25 07:41 Dose: 40 mg Documented By: Admin: 01/13/25 09:41 Dose: 40 mg Documented By: CHERRI Pravastatin Sodium (Pravastatin Sod 40 Mg Tab) 40 mg PO DAILY ALE Stop: 02/12/25 08:59 Last Admin: 01/14/25 07:41 Dose: 40 mg Documented By: Admin: 01/13/25 09:41 Dose: 40 mg Documented By: CHERRI Discontinued Medications Sodium Chloride (Nss) 1,000 mls @ 999 mls/hr IV .Q1H1M ALE Stop: 01/12/25 13:00 Last Infusion: 01/12/25 14:28 Dose: Infused Documented By: Admin: 01/12/25 13:06 Dose: 999 mls/hr Documented By: Infusion: 01/12/25 12:32 Dose: Infused Documented By: Admin: 01/12/25 11:31 Dose: 999 mls/hr Documented By: SHAVON Sodium Chloride (Nss) 1,000 mls @ 80 mls/hr IV .[id number] ALE Stop: 01/13/25 04:59 Last Infusion: 01/13/25 06:54 Dose: Infused Documented By: [facility] Admin: 01/12/25 18:18 Dose: 80 mls/hr Documented By: DARIO Insulin Aspart (Insulin Aspart Per Unit Charge) 0 units SC ACHS ALE Stop: 02/11/25 16:29 Last Admin: 01/13/25 12:42 Dose: Not Given Documented By: Admin: 01/13/25 09:40 Dose: Not Given Documented By: [facility] Admin: 01/12/25 20:30 Dose: Not Given Documented By: [id number] Co-signed By: ROHAN Admin: 01/12/25 18:18 Dose: Not Given Documented By: DARIO Ioversol (Optiray 320 125ml) 118 ml IV ONCE ONE Stop: 01/12/25 12:09 Last Admin: 01/12/25 12:08 Dose: 118 ml Documented By: JANETH Lorazepam (Lorazepam 2 Mg/1 Ml Vial) 0.25 mg IV NOW STA Stop: 01/12/25 11:32 Last Admin: 01/12/25 11:36 Dose: 0.25 mg Documented By: SHAVON Lorazepam (Lorazepam 2 Mg/1 Ml Vial) 0.25 mg IV NOW STA Stop: 01/12/25 13:07 Last Admin: 01/12/25 13:51 Dose: 0.25 mg Documented By: SHAVON Meclizine HCl (Meclizine Hcl 25 Mg Tab) 25 mg PO NOW STA Stop: 01/12/25 11:19 Last Admin: 01/12/25 11:31 Dose: 25 mg Documented By: SHAVON Metoclopramide HCl (Metoclopramide Hcl Inj 5 Mg/Ml 2 Ml Vial) 10 mg IV NOW STA Stop: 01/12/25 12:55 Last Admin: 01/12/25 13:06 Dose: 10 mg Documented By: SHAVON Ondansetron HCl (Ondansetron Inj 2 Mg/Ml 2 Ml Vial) 4 mg IV NOW STA Stop: 01/12/25 10:54 Last Admin: 01/12/25 11:31 Dose: 4 mg Documented By: SHAVON Ondansetron HCl (Ondansetron Inj 2 Mg/Ml 2 Ml Vial) 4 mg IV Q6H PRN PRN Reason: Nausea Stop: 02/11/25 16:29 Last Admin: 01/12/25 18:18 Dose: 4 mg Documented By: DARIO Potassium Chloride (Potassium Chloride Crtab 20 Meq Tabcr) 20 meq PO NOW STA Stop: 01/13/25 07:48 Last Admin: 01/13/25 09:44 Dose: 20 meq Documented By: BEV
== END 2025-01-14 15:47 | disposition home or self-care (01) | DRG 149 ==
LOC: ED 10:35 → INTOOBSV 14:13 → 2N 14:13 → SUATTDRO 14:13 → 2N 16:00